=== PATIENT | female | born 1960 | race Caucasian/White ===

== ENCOUNTER 2020-01-08 13:01 | Emergency (ER) | payer OTHER ==
[~2020-01-08] VITALS: Ht 157.5 cm; Wt 85.8 kg
[2020-01-08] MEDS ORDERED: PEPC40TA12 PO (13:11)
[2020-01-08] MEDS ORDERED: PANT40TA3 PO (13:11)
[2020-01-08] MEDS ORDERED: ONDANSETRON 4MG/2ML VIAL (J2405) IV ONE (13:45)
[2020-01-08] MEDS ORDERED: MORPHINE 4 MG/ML 1ML VIAL/SYRINGE (J2270) IV ONE (13:45)
[2020-01-08] MEDS ORDERED: NS 1,000 ML IV ONE (13:45)
[2020-01-08 14:01] LABS: BASO % 0.5 % (0.0-1.0); EOS # 0.2 10^3/uL (0.0-0.5); EOS % 2.9 % (0.0-3.0); HEMATOCRIT 40.9 % (36.0-47.0); HEMOGLOBIN 13.9 g/dl (12.0-15.5); LYMPH # 0.9 10^3/uL (1.5-5.0); LYMPH % 16.3 % (24.0-44.0); MEAN CORPUSCULAR HEMOGLOBIN 33.2 pg (27.0-33.0); MEAN CORPUSCULAR VOLUME 97.6 fl (80.0-96.0); MONO # 0.4 10^3/uL (0.0-0.8); MONO % 7.9 % (0.0-5.0); NEUTROPHILS % 72.2 % (36.0-66.0); PLATELET COUNT, AUTOMATED 307 10^3/uL (150-450); RED BLOOD COUNT 4.19 10^6/uL (4.00-5.40); WHITE BLOOD COUNT 5.6 10^3/uL (4.0-10.0)
[2020-01-08] MEDS ORDERED: ISOVUE-370 76% 100ML VIAL (Q9967) As Ordered ONE (14:10)
[2020-01-08 14:34] LABS: ALBUMIN 4.1 GM/DL (3.2-5.2); ALT/SGPT 81 U/L (12-78); BILIRUBIN,DIRECT 0.1 MG/DL (0.0-0.2); BILIRUBIN,TOTAL 0.3 MG/DL (0.2-1.0); CK-MB VALUE MASS < 1.0 NG/ML (<3.6); CPK CREATINE PHOSPHOKINASE 71 U/L (26-192); LIPASE 77 U/L (73-393); MB/CK RELATIVE INDEX 1.41 (< OR =4); TOTAL PROTEIN 7.4 GM/DL (6.4-8.2); TROPONIN I < 0.02 NG/ML (< 0.10)
[2020-01-08] MEDS ORDERED: ONDA4TAB6 PO (15:10)
[2020-01-08] MEDS ORDERED: NORC1TAB7 PO (15:10)
[2020-01-08 16:04] VITALS: BP 149/85
--- NOTE | 2020-01-08 16:09 | REP ---
CT abdomen and pelvis with IV but without oral contrast: History: Upper abdominal pain. History of pancreatitis. No comparison study. CT contrast dose: 100 mL of intravenous Isovue 370. 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 There are clips in the right upper quadrant of the abdomen. The lung bases are essentially clear on axial images. There is moderate diffuse fatty infiltration of the liver. There is a small 1 cm cyst in the right lobe. No other focal liver lesion is seen. Spleen is normal in size and homogeneous in texture. There is a small accessory splenule inferior to the spleen. The pancreas shows no evidence of cyst or mass. Common bile duct is unremarkable post cholecystectomy. No adrenal lesion is seen. Kidneys enhance symmetrically and are morphologically intact. Small and large bowel loops are normal in the upper abdomen. A normal appendix is visible in the right lower quadrant. Pelvic images show normal small and large bowel loops. No uterine or ovarian abnormality is seen. Urinary bladder is unremarkable. No abdominal wall defect is observed. Bone window settings demonstrate degenerative disc changes at L3-4 and L4-5. No bony destructive lesion is seen. Impression: Moderate diffuse fatty infiltration of the liver. Post cholecystectomy. Normal appendix. No acute abdominal or pelvic abnormality seen. Electronically Signed by Davis Lyons MD 01/08/2020 04:15 P
--- NOTE | 2020-01-08 18:07 | ECGEPIP ---
[facility] - ED Test Date: 2020-01-08 Pat Name: FLOYD HINES Department: Room: - Gender: Female [employer] Specialist: JOEL : 1960 Requested By: JULIANA GARZA Order Number: [id number] Reading MD: Varun Mcelroy Measurements Intervals [place] Rate: 111 P: 38 IA: 120 QRS: -3 QRSD: 76 T: -6 QT: 328 QTc: 446 Interpretive Statements SINUS TACHYCARDIA NONSPECIFIC T-WAVE ABNORMALITY NO PRIORS FOR COMPARISON Electronically Signed on 01-08-2020 18:07:05 EST by Varun Mcelroy
== END 2020-01-08 16:06 | disposition home or self-care (01) ==
LOC: M ED 13:01
DX: R10.9 Unspecified abdominal pain (principal); R00.0 Tachycardia, unspecified; K21.9 Gastro-esophageal reflux disease without esophagitis; Z87.19 Personal history of other diseases of the digestive system; K76.0 Fatty (change of) liver, not elsewhere classified; Z88.8 Allergy status to other drugs, medicaments and biological substances
CPT/HCPCS: 74177; 80047; 80076; 81001; 82550; 82553; 83690; 85025; 93005; 96361; 96374; 96375; 99284; J2270; J2405; Q9967